=== PATIENT | male | born 1960 | race Caucasian/White ===

== ENCOUNTER 2017-01-11 23:24 | Emergency (ER) | payer BC ==
[2017-01-11 23:28] VITALS: BP 151/86
[2017-01-11] MEDS ORDERED: Aspirin 81 MG Tab.Chew ONE (23:32)
[2017-01-11] MEDS ORDERED: Aspirin 81 MG Tab.Chew PO ONE (23:36)
[2017-01-11] MEDS ORDERED: Sodium Chloride 0.9% 10 ML Syringe FLUSH PRN (23:36)
[2017-01-11] MEDS ORDERED: Morphine 4 MG/ML Syringe ONE (23:49)
[2017-01-11] MEDS ORDERED: Clopidogrel 75 MG Tab PO ONE (23:55)
[2017-01-11] MEDS ORDERED: Heparin Sodium 5,000 Units/ML Vial IVPUSH ONE (23:55)
[2017-01-11] MEDS ORDERED: Morphine 4 MG/ML Syringe IVPUSH ONE (23:55)
[2017-01-11] MEDS: Heparin Sodium/D5W 500 ML ONE ×2 (23:55)
--- NOTE | 2017-01-12 00:03 | EDM.PDOC ---
ED HPI GENERAL MEDICAL PROBLEM - General Chief Complaint: Chest Pain Stated Complaint: CHEST PAINS Time Seen by Provider: 01/11/17 23:56 Source of Information: Reports: Patient, Family History Limitations: Reports: No Limitations - History of Present Illness INITIAL COMMENTS - FREE TEXT/NARRATIVE: This gentleman comes in with lower left substernal chest pain this been going on for 1-1/2 hours. His said he had an episode about a week ago at work that was similar but went away without any treatment. The patient thinks he had a mild heart attack along time ago. He's had a little bit of nausea but no shortness of breath. He was seen in clinic within the past month he was having some coughing determined to be lisinopril but also wound up seeing a ammunition and explosives handler and it was determined that this was not of a cardiac nature. The cough went away. The patient is a smoker and continues to smoke despite warnings. Left Anterior Chest Pain Score (Numeric/FACES): 10 - Related Data Allergies Allergy/AdvReac Type Severity Reaction Status Date / Time hydrocodone Allergy Itching Verified 09/21/16 09:54 lisinopril Allergy Cough Verified 09/21/16 09:55 oxycodone Allergy Itching Verified 09/21/16 09:55 Home Meds: Home Meds Aspirin [Halfprin] 81 mg PO DAILY 09/17/16 [History] Lisinopril 5 mg PO DAILY 01/11/17 [History] Metoprolol Tartrate [Metoprolol Tartrate] 25 mg PO DAILY 01/11/17 [History] Past Medical History HEENT History: Reports: Impaired Vision Cardiovascular History: Reports: High Cholesterol, Hypertension, [place] Musculoskeletal History: Reports: Fracture - Infectious Disease History Infectious Disease History: Reports: C-Difficile, Measles - Past Surgical History Musculoskeletal Surgical History: Reports: Other (See Below) Other Musculoskeletal Surgeries/Procedures:: back fusion Social & Family History - Tobacco Use Smoking Status *Q: Current Every Day Smoker Years of Tobacco use: 30 Packs/Tins Daily: 1 Used Tobacco, but Quit: No Second Hand Smoke Exposure: Yes - Caffeine Use Caffeine Use: Reports: Coffee - Alcohol Use Days Per Week of Alcohol Use: 7 Number of Drinks Per Day: 2 Total Drinks Per Week: 14 Date of Last Drink: 01/11/17 Time of Last Drink: 21:00 - Recreational Drug Use Recreational Drug Use: No ED ROS GENERAL - Review of Systems Review Of Systems: See Below Constitutional: Reports: No Symptoms HEENT: Reports: No Symptoms Respiratory: Reports: No Symptoms Cardiovascular: Reports: Chest Pain Endocrine: Reports: No Symptoms GI/Abdominal: Reports: No Symptoms : Reports: No Symptoms ED EXAM, GENERAL - Physical Exam Exam: See Below Exam Limited By: No Limitations General Appearance: Alert (1 as best), WD/WN, Mild Distress Eye Exam: Bilateral Eye: Normal Inspection Ears: Normal External Exam Throat/Mouth: Normal Inspection Neck: Normal Inspection Respiratory/Chest: Lungs Clear (Tremaine help how fast) Cardiovascular: Normal Peripheral Pulses (He is Kaya here), Regular Rate, Rhythm GI/Abdominal: Normal Bowel Sounds Extremities: Normal Inspection Neurological: Alert, Normal Reflexes Psychiatric: Normal Affect Skin Exam: Warm, Dry Course - Vital Signs Last Recorded V/S: Last Vital Signs Temp 37 C 01/11/17 23:26 Pulse 94 01/11/17 23:26 Resp 18 01/11/17 23:26 BP 151/86 H 01/11/17 23:26 Pulse Ox 91 L 01/11/17 23:26 - Orders/Labs/Meds Orders: Active Orders 24 hr Category Date Time Status EKG Documentation Completion [RC] ASDIRECTED Care 01/11/17 23:36 Ordered COMPREHENSIVE METABOLIC PN,CMP [CHEM] Urgent Lab 01/11/17 23:36 Ordered TROPONIN I [CHEM] Urgent Lab 01/11/17 23:36 Ordered Morphine Med 01/11/17 23:55 Once 4 mg IVPUSH ONETIME ONE Sodium Chloride 0.9% [Saline Flush] Med 01/11/17 23:36 Ordered 10 ml FLUSH ASDIRECTED PRN Saline Lock Insert [OM.PC] Urgent Oth 01/11/17 23:36 Ordered EKG 12 Lead [EK] Urgent Ther 01/11/17 23:36 Ordered Medication Orders Morphine Sulfate (Morphine) 4 mg IVPUSH ONETIME ONE Stop: 01/11/17 23:56 Sodium Chloride (Saline Flush) 10 ml FLUSH ASDIRECTED PRN PRN Reason: Keep Vein Open Last Admin: 01/11/17 23:49 Dose: 10 ml Labs: Laboratory Tests 01/11/17 Range/Units 23:36 WBC 6.4 (4.5-11.0) K/uL RBC 4.67 (4.30-5.90) M/uL Hgb 15.1 H (12.0-15.0) g/dL Hct 43.6 (40.0-54.0) % MCV 93 (80-98) fL MCH 32 H (27-31) pg MCHC 35 (32-36) % Plt Count 231 (150-400) K/uL Neut % (Auto) 51 (36-66) % Lymph % (Auto) 39 (24-44) % Winkler % (Auto) 7 H (2-6) % Eos % (Auto) 2 (2-4) % Baso % (Auto) 1 (0-1) % Meds: Medications Generic Name Dose Route Start Last Admin Trade Name Freq PRN Reason Stop Dose Admin Morphine Sulfate 4 mg 01/11/17 23:55 Morphine IVPUSH 01/11/17 23:56 ONETIME ONE Sodium Chloride 10 ml 01/11/17 23:36 01/11/17 23:49 Saline Flush FLUSH 10 ml ASDIRECTED PRN Administration Keep Vein Open Discontinued Medications Generic Name Dose Route Start Last Admin Trade Name Freq PRN Reason Stop Dose Admin Aspirin Confirm 01/11/17 23:32 01/11/17 23:50 Aspirin Administered 01/11/17 23:33 Not Given Dose 324 mg .ROUTE .STK-MED ONE Aspirin 324 mg 01/11/17 23:36 01/11/17 23:48 Aspirin PO 01/11/17 23:37 324 mg ONETIME ONE Administration Clopidogrel Bisulfate 600 mg 01/11/17 23:55 Plavix PO 01/11/17 23:56 ONETIME ONE Heparin Sodium (Porcine) 5,000 units 01/11/17 23:55 Heparin Sodium IVPUSH 01/11/17 23:56 ONETIME ONE Heparin Sodium/Dextrose Confirm 01/11/17 23:40 Heparin 25,000 Units In D5w 500 Ml Administered 01/11/17 23:41 Dose 500 mls @ as directed .ROUTE .STK-MED ONE Morphine Sulfate Confirm 01/11/17 23:49 Morphine Administered 01/11/17 23:50 Dose 4 mg .ROUTE .STK-MED ONE - Re-Assessments/Exams Free Text/Narrative Re-Assessment/Exam: 01/11/17 23:[address] elevation in 3 inferior leads. Normal sinus rhythm. The patient received aspirin 324 mg, heparin 5000 unit bolus, Plavix 600 mg. He also received morphine 4 mg IV for pain. I spoke with Dr. Veras at [facility] in [place] and he has accepted the patient. The patient will go by air transport. Patient was offered treatment at [place] or [place] and he shows [place]. He's aware that there is not a heart surgeon in [place]. Departure - Departure Time of Disposition: 00:02 Disposition: DC/Tfer to Acute Hospital 02 Reason for Transfer *Q: Primary PCI Indicated Condition: Fair Clinical Impression: Acute myocardial infarction Forms: ED Department Discharge - My Orders Last 24 Hours: My Active Orders 01/11/17 23:36 EKG Documentation Completion [RC] ASDIRECTED COMPREHENSIVE METABOLIC PN,CMP [CHEM] Urgent TROPONIN I [CHEM] Urgent Sodium Chloride 0.9% [Saline Flush] 10 ml FLUSH ASDIRECTED PRN Saline Lock Insert [OM.PC] Urgent EKG 12 Lead [EK] Urgent 01/11/17 23:55 Morphine 4 mg IVPUSH ONETIME ONE - Assessment/Plan Last 24 Hours: My Active Orders 01/11/17 23:36 EKG Documentation Completion [RC] ASDIRECTED COMPREHENSIVE METABOLIC PN,CMP [CHEM] Urgent TROPONIN I [CHEM] Urgent Sodium Chloride 0.9% [Saline Flush] 10 ml FLUSH ASDIRECTED PRN Saline Lock Insert [OM.PC] Urgent EKG 12 Lead [EK] Urgent 01/11/17 23:55 Morphine 4 mg IVPUSH ONETIME ONE
[2017-01-14] MEDS ORDERED: Heparin Sodium/D5W 25,000 UNITS/500 ML BAG IV SCH (09:30)
== END 2017-01-11 23:59 ==
LOC: JP.ED 23:24
DX: I21.3 ST elevation (STEMI) myocardial infarction of unspecified site (principal); E78.00 Pure hypercholesterolemia, unspecified; I10 Essential (primary) hypertension; F17.210 Nicotine dependence, cigarettes, uncomplicated; Z79.82 Long term (current) use of aspirin; Z79.899 Other long term (current) drug therapy; Z88.6 Allergy status to analgesic agent; Z88.8 Allergy status to other drugs, medicaments and biological substances
CPT/HCPCS: 36415; 80053; 84484; 85025; 93005; 96374; 96375; 99285; A9270; J1644; J2270; J7050

== ENCOUNTER 2019-06-15 18:44 | Emergency (ER) | payer BC ==
[2019-06-15 19:10] VITALS: BP 159/95; PULSE 74
[2019-06-15] MEDS ORDERED: fentaNYL 100 MCG/2 ML SDV IM ONE (19:35)
[2019-06-15] MEDS ORDERED: Lidocaine 1% with EPINEPHrine 1:100,000 50 ML MDV SUBCUT STA (19:36)
[2019-06-15] MEDS ORDERED: Bacitracin Oint 1 GM U/D Packet TOP ONE (19:36)
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
--- NOTE | 2019-06-15 20:18 | CRLCR ---
Indication: Fall. Pain Technique: Four views of the left shoulder Comparison: None available Findings: Bones: A cortical lucency in the mid to distal clavicle consistent with a nondisplaced fracture. No dislocation. Joint spaces: Mild acromioclavicular arthrosis. Soft tissues: A small soft tissue calcification inferior to the glenoid, nonspecific. Impression: A nondisplaced left clavicular fracture. Dictated by Koffi Rankin MD @ 06/15/2019 8:17:01 PM Dictated by: Koffi Rankin MD @ 06/15/2019 20:17:06 (Electronically Signed)
--- NOTE | 2019-06-15 20:27 | CRLCT ---
INDICATION: Fall TECHNIQUE: CT head without contrast. COMPARISON: None available FINDINGS: The ventricles and sulci are within normal limits for the patient`s age. There is no mass effect or midline shift. There is no loss of celestin-white differentiation. Apparent punctate densities in the inferior aspect of the left frontal lobe on images 6-9 are at least partially related to regional artifact. Otherwise, there is no evidence of a gross acute intracranial hemorrhage. No acute calvarial fracture is seen. There is posterior scalp soft tissue swelling and small hematoma. The visualized paranasal sinuses and mastoid air cells are clear. The visualized orbits are within normal limits. IMPRESSION: Apparent punctate densities in the inferior aspect of the left frontal lobe are at least partially related to regional artifact, however, given the posterior scalp injury, correlate with a short-term follow-up study in 4-8 hours, if clinically indicated. Dictated by Koffi Rankin MD @ 06/15/2019 8:22:31 PM Please note that all CT scans at this facility use dose modulation, iterative reconstruction, and/or weight-based dosing when appropriate to reduce radiation dose to as low as reasonably achievable. Dictated by: Koffi Rankin MD @ 06/15/2019 20:24:53 (Electronically Signed)
[2019-06-15] MEDS ORDERED: Diphtheria,Pertussis(Acell),Tetanus Vaccine 0.5 ML SDV IM ONE (20:45)
[2019-06-15] MEDS ORDERED: Acetaminophen 500 MG Tab PO ONE (23:16)
--- NOTE | 2019-06-16 00:36 | CRLCT ---
INDICATION: 4 HOUR F/U HEAD INJURY CT HEAD WITHOUT CONTRAST TECHNIQUE: Multiple axial CT images were performed through the head without intravenous contrast administration. COMPARISON: 7:51 p.m. 06/15/[address] FINDINGS: No acute intracranial hemorrhage is identified. No extra-axial collections are evident and there is no mass effect or midline shift. Ventricles are normal in size and configuration. Brain parenchyma appears normal with unremarkable celestin-white differentiation. Posterior scalp hematoma is again seen, unchanged except for new overlying skin karri. Osseous structures are within normal limits and no fractures are seen. Included portions of the paranasal sinuses and mastoid air cells are normally aerated. IMPRESSION: 1. No intracranial hemorrhage or other acute intracranial abnormality identified. 2. Posterior scalp hematoma. No fracture. RHYS MACDONALD MD [facility] Signed by: Rodolfo Macdonald MD @06/16/2019 12:35:02 AM (Electronically Signed)
== END 2019-06-16 01:21 | disposition home or self-care (01) ==
LOC: JP.ED 18:44
DX: S42.025A Nondisplaced fracture of shaft of left clavicle, initial encounter for closed fracture (principal); S01.01XA Laceration without foreign body of scalp, initial encounter; S09.90XA Unspecified injury of head, initial encounter; I25.10 Atherosclerotic heart disease of native coronary artery without angina pectoris; I25.2 Old myocardial infarction; I10 Essential (primary) hypertension; E78.5 Hyperlipidemia, unspecified; Z79.82 Long term (current) use of aspirin; Z79.01 Long term (current) use of anticoagulants; Z79.899 Other long term (current) drug therapy; Z88.5 Allergy status to narcotic agent; Z88.8 Allergy status to other drugs, medicaments and biological substances; Z95.5 Presence of coronary angioplasty implant and graft; Z23 Encounter for immunization; F17.210 Nicotine dependence, cigarettes, uncomplicated; W01.198A Fall on same level from slipping, tripping and stumbling with subsequent striking against other object, initial encounter; Y93.89 Activity, other specified
CPT/HCPCS: 12001; 70450; 73030; 90471; 90715; 96372; 99284; A9270; J3010

== ENCOUNTER 2019-12-30 20:21 | Emergency (ER) | payer BC ==
[2019-12-30] MEDS ORDERED: Lidocaine 1% 20 ML MDV INJECT ONE (20:29)
[2019-12-30] MEDS ORDERED: Bacitracin Oint 1 GM U/D Packet TOP ONE (20:30)
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
[2019-12-30 20:41] VITALS: BP 139/72; PULSE 85
== END 2019-12-30 21:52 | disposition home or self-care (01) ==
LOC: JP.ED 20:21
DX: S71.112A Laceration without foreign body, left thigh, initial encounter (principal); I25.10 Atherosclerotic heart disease of native coronary artery without angina pectoris; E78.00 Pure hypercholesterolemia, unspecified; I10 Essential (primary) hypertension; I25.2 Old myocardial infarction; Z88.8 Allergy status to other drugs, medicaments and biological substances; Z88.5 Allergy status to narcotic agent; Z79.82 Long term (current) use of aspirin; Z79.02 Long term (current) use of antithrombotics/antiplatelets; Z79.899 Other long term (current) drug therapy; W29.3XXA Contact with powered garden and outdoor hand tools and machinery, initial encounter
CPT/HCPCS: 12034; 99282; J2001